=== PATIENT | female | born 1930 | race Caucasian/White ===

== ENCOUNTER 2018-08-20 17:20 | Inpatient (IN) | payer MEDICARE, OTHER ==
[2018-08-20 17:36] LABS: ABSOLUTE BASOPHILS # (AUTO) 0.1 10^3/uL (0.0-0.2); ABSOLUTE EOSINOPHILS # (AUTO) 0.3 10^3/uL (0.0-0.6); ABSOLUTE LYMPHOCYTES (AUTO) 2.5 10^3/uL (0.5-4.7); ABSOLUTE MONOCYTES (AUTO) 0.9 10^3/uL (0.1-1.4); ABSOLUTE NEUT (AUTO) 7.4 10^3/uL (1.7-8.2); BASOPHILS % (AUTO) 0.5 % (0-2); HEMATOCRIT 29.2 % (36.0-47.0); HEMOGLOBIN 9.7 g/dL (12.0-15.5); LYMPHOCYTES % (AUTO) 22.4 % (13-45); MEAN CORPUSCULAR HEMOGLOBIN 27.7 pg (27.0-33.4); MEAN CORPUSCULAR HGB CONC 33.2 g/dL (32.0-36.0); MEAN CORPUSCULAR VOLUME 84 fl (80-97); MONOCYTES % (AUTO) 8.4 % (3-13); PLATELET COUNT 337 10^3/uL (150-450); RED CELL DISTRIBUTION WIDTH 16.9 % (11.5-14.0); SEGMENTED NEUTROPHILS % (AUTO) 65.7 % (42-78); TOTAL CELLS COUNTED % (AUTO) 100 %; WHITE BLOOD COUNT 11.3 10^3/uL (4.0-10.5)
[2018-08-20 17:41] LABS: INTERNATIONAL RATION (INR) 0.94; PROTHROMBIN TIME 13.1 SEC (11.4-15.4)
[2018-08-20] MEDS ORDERED: ALBUTEROL SULFATE 0.083% NEB 2.5 MG/3 ML AMPUL NEB ONE (17:48)
--- NOTE | 2018-08-20 17:51 | ER Document Report ---
ED General - General Stated Complaint: RESPIRATORY DISTRESS Time Seen by Provider: 08/20/18 17:47 Mode of Arrival: Medic Information source: Patient, Relative, [facility] Records Notes: 88-year-old female with hypertension, type 2 diabetes, hyperlipidemia, COPD presents via EMS with complaint of shortness of breath that started 2 days prior to arrival. Patient did give herself a nebulizer treatment prior to EMS arrival but upon EMS arrival she was found to have a 99%. Patient denies any recent illness, history of DVT, PE. She does state that she was sitting outside and believes that the pollen might have flared up her COPD. Patient denies headache, chest pain, abdominal pain, nausea, vomiting, leg swelling. She denies history of PE, DVT. - HPI Onset: Yesterday Onset/Duration: Gradual, Persistent Quality of pain: No pain Severity: None Pain Level: Denies Associated symptoms: Shortness of breath, Weakness. denies: Chest pain, Fever, Headache, Hurts to breath, Leg swelling, Nausea, Vomiting Exacerbated by: Denies Relieved by: Denies Similar symptoms previously: Yes Recently seen / treated by doctor: Yes - Related Data Allergies/Adverse Reactions: codeine [Codeine] Allergy (Verified 07/08/13 08:48) doxycycline [Doxycycline] Allergy (Verified 07/08/13 08:48) Past Medical History - General Information source: Patient, Relative, [facility] Records - Social History Smoking Status: Former Smoker Frequency of alcohol use: None Drug Abuse: None Lives with: Family Family History: Reviewed & Not Pertinent Patient has suicidal ideation: No Patient has homicidal ideation: No - Past Medical History Cardiac Medical History: Reports: Hx Hypercholesterolemia, Hx Hypertension Endocrine Medical History: Reports: Hx Diabetes Mellitus Type 2 Psychiatric Medical History: Denies: Hx Depression Past Surgical History: Reports: Hx Orthopedic Surgery - right toe amputation x 2 - Immunizations Hx Diphtheria, Pertussis, Tetanus Vaccination: Yes Hx Pneumococcal Vaccination: 06/05/07 Review of Systems - Review of Systems Notes: REVIEW OF SYSTEMS: CONSTITUTIONAL : Denies fever, chills, or sweats. Denies recent illness. Denies weight loss, recent hospitalizations. EENT: Denies visual changes, eye pain. Denies sore throat, oral lesions, difficulty swallowing. CARDIOVASCULAR: Denies chest pain. Denies palpitations. Denies lower extremity edema. RESPIRATORY: Denies cough. GASTROINTESTINAL: Denies abdominal pain or distention. Denies nausea, vomiting, or diarrhea. Denies blood in vomitus, stools, or per rectum. Denies black, tarry stools. Denies constipation. GENITOURINARY: Denies difficulty urinating, painful urination, frequency, blood in urine, or vaginal discharge. MUSCULOSKELETAL: Denies back or neck pain or stiffness. Denies joint pain or swelling. SKIN: Denies rash, lesions or sores. HEMATOLOGIC : Denies easy bruising or bleeding. LYMPHATIC: Denies swollen glands. NEUROLOGICAL: Denies confusion or altered mental status. Denies loss of consciousness. Denies dizziness or lightheadedness. Denies headache. Denies weakness or paralysis. Denies problems difficulty with ambulation, slurred speech. Denies sensory loss, numbness, or tingling. Denies seizures. PSYCHIATRIC: Denies anxiety or stress. Denies depression, suicidal ideation, or homicidal ideation. Denies visual or auditory hallucinations. Physical Exam - Vital signs Vitals: Resp Pulse Ox 24 H 99 08/20/18 19:57 08/20/18 19:57 - Notes Notes: PHYSICAL EXAMINATION: GENERAL: Well-appearing, well-nourished and in no acute distress. HEAD: Atraumatic, normocephalic. EYES: Pupils equal round and reactive to light, extraocular movements intact, conjunctiva are normal. ENT: Nares patent, oropharynx clear without exudates. Moist mucous membranes. NECK: Normal range of motion, supple without lymphadenopathy LUNGS: Breath sounds clear to auscultation bilaterally and equal. On nonrebreather, expiratory wheezing, no increased work of breathing, no accessory muscle use. HEART: Regular rate and rhythm without murmurs ABDOMEN: Soft, nontender, nondistended abdomen. No guarding, no rebound. No masses appreciated. Female : deferred Musculoskeletal: Normal range of motion, no pitting or edema. No cyanosis. NEUROLOGICAL: Cranial nerves grossly intact. Normal speech, normal gait. Normal sensory, motor exams PSYCH: Normal mood, normal affect. SKIN: Warm, Dry, normal turgor, no rashes or lesions noted. Course - Re-evaluation Re-evalutation: 08/20/18 21:18 Laboratory 08/20/18 08/20/18 08/20/18 16:50 16:50 16:50 WBC 11.3 H RBC 3.50 L Hgb 9.7 L Hct 29.2 L MCV 84 MCH 27.7 MCHC 33.2 RDW 16.9 H Plt Count 337 Seg Neutrophils % 65.7 Lymphocytes % 22.4 Monocytes % 8.4 Eosinophils % 3.0 Basophils % 0.5 Absolute Neutrophils 7.4 Absolute Lymphocytes 2.5 Absolute Monocytes 0.9 Absolute Eosinophils 0.3 Absolute Basophils 0.1 PT 13.1 INR 0.94 VBG pH VBG pCO2 VBG HCO3 VBG Base Excess Sodium 134.2 L Potassium 4.7 Chloride 97 L Carbon Dioxide 24 Anion Gap 13 BUN 29 H Creatinine 1.18 Est GFR ( Amer) 53 L Est GFR (Non-Af Amer) 43 L Glucose 140 H POC Glucose Calcium 9.7 Total Bilirubin 0.4 Direct Bilirubin 0.3 Neonat Total Bilirubin Not Reportable Neonat Direct Bilirubin Not Reportable Neonat Indirect Bili Not Reportable AST 25 ALT 23 Alkaline Phosphatase 94 Troponin I NT-Pro-B Natriuret Pep Total Protein 7.9 Albumin 4.6 08/20/18 08/20/18 08/20/18 16:50 16:50 17:54 WBC RBC Hgb Hct MCV MCH MCHC RDW Plt Count Seg Neutrophils % Lymphocytes % Monocytes % Eosinophils % Basophils % Absolute Neutrophils Absolute Lymphocytes Absolute Monocytes Absolute Eosinophils Absolute Basophils PT INR VBG pH 7.41 VBG pCO2 37.5 VBG HCO3 23.1 VBG Base Excess -1.3 Sodium Potassium Chloride Carbon Dioxide Anion Gap BUN Creatinine Est GFR ( Amer) Est GFR (Non-Af Amer) Glucose POC Glucose Calcium Total Bilirubin Direct Bilirubin Neonat Total Bilirubin Neonat Direct Bilirubin Neonat Indirect Bili AST ALT Alkaline Phosphatase Troponin I 0.024 NT-Pro-B Natriuret Pep 1400 H Total Protein Albumin 08/20/18 18:54 WBC RBC Hgb Hct MCV MCH MCHC RDW Plt Count Seg Neutrophils % Lymphocytes % Monocytes % Eosinophils % Basophils % Absolute Neutrophils Absolute Lymphocytes Absolute Monocytes Absolute Eosinophils Absolute Basophils PT INR VBG pH VBG pCO2 VBG HCO3 VBG Base Excess Sodium Potassium Chloride Carbon Dioxide Anion Gap BUN Creatinine Est GFR ( Amer) Est GFR (Non-Af Amer) Glucose POC Glucose 184 H Calcium Total Bilirubin Direct Bilirubin Neonat Total Bilirubin Neonat Direct Bilirubin Neonat Indirect Bili AST ALT Alkaline Phosphatase Troponin I NT-Pro-B Natriuret Pep Total Protein Albumin Chest X-Ray 08/20/18 17:25 IMPRESSION: Patchy bibasilar airspace opacities may represent an infectious process such as pneumonia. In the setting of cardiomegaly, early congestive heart failure could have a similar appearance. Clinical correlation recommended. Temp Pulse Resp BP Pulse Ox 24 H 99 08/20/18 19:57 08/20/18 19:57 88-year-old female presented via EMS in respiratory distress. EMS reported that the patient's initial pulse ox upon arrival was 79%. Patient did administer breathing treatments at home without relief. Upon arrival patient is on a nonrebreather after receiving 2 breathing treatments and 125 mg of Solu-Medrol. Patient does have bilateral lower lobe rhonchi with mild expiratory wheezing. She has no accessory muscle use, increased work of breathing, but is requiring 6 L to maintain an O2 saturation over 94%. Patient is not on home oxygen normally. Bedside ultrasound was performed of the lungs and heart. Ultrasound of the lungs did show significant B-lines indicative of interstitial edema. Bedside ultrasound of the heart showed no pericardial effusion, evidence of tamponade. Patient was placed on BiPAP, Nitropaste was placed, Lasix was administered. Patient has been accepted by the hospitalist to the [facility]. Both patient and family agreeable to admission. - Vital Signs Vital signs: Temp Pulse Resp BP Pulse Ox 24 H 99 08/20/18 19:57 08/20/18 19:57 - Laboratory Result Diagrams: 08/20/18 16:50 08/20/18 16:50 Laboratory results interpreted by me: 08/20/18 08/20/18 08/20/18 16:50 16:50 16:50 WBC 11.3 H RBC 3.50 L Hgb 9.7 L Hct 29.2 L RDW 16.9 H Sodium 134.2 L Chloride 97 L BUN 29 H Est GFR ( Amer) 53 L Est GFR (Non-Af Amer) 43 L Glucose 140 H POC Glucose NT-Pro-B Natriuret Pep 1400 H 08/20/18 18:54 WBC RBC Hgb Hct RDW Sodium Chloride BUN Est GFR ( Amer) Est GFR (Non-Af Amer) Glucose POC Glucose 184 H NT-Pro-B Natriuret Pep - Diagnostic Test Radiology reviewed: Image reviewed, Reports reviewed - EKG Interpretation by Dc EKG shows normal: Sinus rhythm Rate: Normal Rhythm: NSR When compared to previous EKG there are: Changes noted Critical Care Note - Critical Care Note Total time excluding time spent on procedures (mins): 40 - Minutes of critical care time spent in direct contact evaluating and reevaluating the patient, treating symptoms, reviewing labs and studies and speaking with family and consultants excluding any procedures Discharge - Discharge Clinical Impression: New onset of congestive heart failure, Hypoxia, Shortness of breath, Diabetes mellitus type 2 in obese Anemia Qualifiers: Anemia type: unspecified type Qualified Code(s): D64.9 - Anemia, unspecified COPD (chronic obstructive pulmonary disease) Qualifiers: COPD type: unspecified COPD Qualified Code(s): J44.9 - Chronic obstructive pulmonary disease, unspecified Condition: Fair Disposition: ADMITTED INPATIENT Admitting Provider: Hospitalist Unit Admitted: [facility]
--- NOTE | 2018-08-20 17:54 | RADIOLOGY REPORT (SQ) ---
EXAM DESCRIPTION: CHEST SINGLE VIEW COMPLETED DATE/TIME: 08/20/2018 5:48 pm REASON FOR STUDY: bed 1 sepsis protocol COMPARISON: 07/08/2013 EXAM PARAMETERS: NUMBER OF VIEWS: One view. TECHNIQUE: Single frontal radiographic view of the chest acquired. RADIATION DOSE: NA LIMITATIONS: None. FINDINGS: LUNGS AND PLEURA: Bibasilar patchy airspace opacities with suggestion of small left-sided pleural effusion. MEDIASTINUM AND HILAR STRUCTURES: No masses. Contour normal. HEART AND VASCULAR STRUCTURES: Borderline cardiomegaly. BONES: No acute findings. HARDWARE: None in the chest. OTHER: No other significant finding. IMPRESSION: Patchy bibasilar airspace opacities may represent an infectious process such as pneumoni a. In the setting of cardiomegaly, early congestive heart failure could have a similar appearance. Clinical correlation recommended. TECHNICAL DOCUMENTATION: JOB ID: [id number] [employer]- All Rights Reserved Reading location - IP/workstation name: [email or web address]
[2018-08-20 18:00] LABS: ALANINE AMINOTRANSFERASE 23 U/L (9-52); ALBUMIN 4.6 g/dL (3.5-5.0); ALKALINE PHOSPHATASE 94 U/L (38-126); ANION GAP 13 (5-19); ASPARTATE AMINO TRANSFERASE 25 U/L (14-36); BILIRUBIN,DIRECT 0.3 mg/dL (0.0-0.4); BILIRUBIN,TOTAL 0.4 mg/dL (0.2-1.3); BLOOD UREA NITROGEN 29 mg/dL (7-20); CALCIUM 9.7 mg/dL (8.4-10.2); CARBON DIOXIDE 24 mmol/L (22-30); CHLORIDE 97 mmol/L (98-107); GLUCOSE 140 mg/dL (75-110); POTASSIUM 4.7 mmol/L (3.6-5.0); SODIUM 134.2 mmol/L (137-145); TOTAL PROTEIN 7.9 g/dL (6.3-8.2)
[2018-08-20 18:07] LABS: VENOUS BLOOD BASE EXCESS -1.3 mmol/L; VENOUS BLOOD HCO3 23.1 mmol/L (20-32); VENOUS BLOOD PCO2 37.5 mmHg (35-63); VENOUS BLOOD PH 7.41 (7.30-7.42)
[2018-08-20] MEDS ORDERED: NITROGLYCERIN 2% OINTMENT 1 GM PACKET TP ONE ×2 (19:57→21:01)
[2018-08-20] MEDS ORDERED: FUROSEMIDE INJ/PF 20 MG/2 ML SDV IV ONE (19:57)
[2018-08-20] MEDS ORDERED: ONDANSETRON HCL INJ/PF 4 MG/2 ML SDV IV PRN (20:52)
[2018-08-20] MEDS ORDERED: MAGNESIUM HYDROXIDE SUSP 30 ML UDCUP PO PRN (20:52)
[2018-08-20] MEDS ORDERED: ONDANSETRON 4 MG TAB.RAPDIS PO PRN (20:52)
[2018-08-20] MEDS ORDERED: MAG HYDROX/AL HYDROX/SIMETH SUSP 30 ML UDCUP PO PRN (20:52)
[2018-08-20] MEDS ORDERED: MORPHINE SULFATE 10 MG/ML INJ IV PRN (20:59)
[2018-08-20] MEDS ORDERED: INSULIN REG, HUMAN 100 UNIT/ML 3 ML VIAL (PYX) SUBCUT PRN (20:59)
[2018-08-20] MEDS ORDERED: HYDRALAZINE HCL INJ/PF 20 MG/1 ML SDV IV PRN (20:59)
[2018-08-20] MEDS ORDERED: ACETAMINOPHEN 325 MG TABLET PO PRN (20:59)
[2018-08-20 22:16] LABS: APPEARANCE,URINE CLEAR; BILIRUBIN,URINE NEGATIVE (NEGATIVE); COLOR,URINE STRAW; GLUCOSE, URINE NEGATIVE (NEGATIVE); KETONES,URINE NEGATIVE (NEGATIVE); LEUKOCYTE ESTERASE,URINE NEGATIVE (NEGATIVE); NITRITE,URINE NEGATIVE (NEGATIVE); PROTEIN,URINE 30 mg/dL (NEGATIVE); URINE SPECIFIC GRAVITY 1.008; UROBILINOGEN,URINE NEGATIVE mg/dL (<2.0)
[2018-08-20] MEDS: FAMOTIDINE 20 MG TABLET PO SCH (22:31)
[2018-08-20] MEDS: HEPARIN SOD (PORCINE) 5,000 UNIT/ML 1 ML SYRINGE SUBCUT SCH (22:33)
--- NOTE | 2018-08-20 22:56 | PDOC H&P ---
History of Present Illness Admission Date/PCP: 08/20/18 20:16 Patient complains of: Dyspnea History of Present Illness: RICHARD QUINONEZ is a 88 year old female who presented to the emergency room via EMS with a 2-day history of progressively worsening dyspnea. She admits that her dyspnea has been present in gradually worsened over the last 2 days without obvious causation. She admits mild orthopnea accompanying her dyspnea. Her dyspnea got to the point today where it was severe and required her to summon EMS to bring her to the emergency room. She did try using a nebulizer treatment prior to coming to the emergency room without improvement. She admits similar prior episodes associated with her COPD, but those are usually accompanied by wheezing. She has noted that exertion significantly increases her dyspnea and it is mildly relieved by rest. In the emergency room she was found to have significant hypoxia despite respiratory support with oxygen and had significant work of breathing requiring her to be placed on BiPAP for adequate oxygenation a nd comfort. With these findings patient was admitted to the hospital for further evaluation and treatment. Past Medical History Cardiac Medical History: Reports: Hyperlipidema, Hypertension Denies: Atrial Fibrillation, Coronary Artery Disease, DVT, Pulmonary Embolism Pulmonary Medical History: Reports: Bronchitis, Chronic Obstructive Pulmonary Disease (COPD), Pneumonia EENT Medical History: Denies: Cataracts, Nose - Nasal polyps Neurological Medical History: Denies: Hemorrhagic CVA, Ischemic CVA, Seizures Endocrine Medical History: Reports: Diabetes Mellitus Type 2 Denies: Diabetes Mellitus Type 1, Hyperthyroidism, Hypothyroidism Renal/ Medical History: Denies: Chronic Kidney Disease, Nephrolithiasis Malignancy Medical History: Reports: None GI Medical History: Denies: Cirrhosis, Hepatitis Musculoskeltal Medical History: Denies: Arthritis, Gout Skin Medical History: Denies: Eczema, Psoriasis Psychiatric Medical History: Denies: Alcohol Dependency, Depression, Substance Abuse, Tobacco Dependency Traumatic Medical History: Reports: None Hematology: Denies: Anemia, Bleeding Tendencies Infectious Medical History: Reports: None Past Surgical History Past Surgical History: Reports: Orthopedic Surgery - right toe amputation x 2 Social History Information Source: Patient Lives with: Family Smoking Status: Former Smoker Frequency of Alcohol Use: None Hx Recreational Drug Use: No Drugs: None Hx Prescription Drug Abuse: No - Advance Directive Resuscitation Status: Full Code Surrogate healthcare decision maker:: Her daughter Rhoda Family History Family History: denies: CAD, DM, Hypertension, Malignancy Parental Family History Reviewed: Yes Children Family History Reviewed: No Sibling(s) Family History Reviewed.: Yes Medication/Allergy Allergies/Adverse Reactions: codeine [Codeine] Allergy (Verified 07/08/13 08:48) doxycycline [Doxycycline] Allergy (Verified 07/08/13 08:48) Review of Systems Constitutional: ABSENT: chills, fever(s) Eyes: ABSENT: visual disturbances, other - Ocular pain Ears: ABSENT: hearing changes, other - Ear pain Nose, Mouth, and Throat: ABSENT: mouth pain, sore throat Cardiovascular: PRESENT: dyspnea on exertion, orthropnea. ABSENT: chest pain, edema, palpitations Respiratory: PRESENT: dyspnea. ABSENT: cough Gastrointestinal: ABSENT: abdominal pain, constipation, diarrhea, nausea, vomiting Genitourinary: ABSENT: dysuria, hematuria Musculoskeletal: ABSENT: back pain, joint swelling Integumentary: ABSENT: pruritus, rash Neurological: ABSENT: confusion, convulsions, focal weakness, memory loss Psychiatric: ABSENT: anxiety, depression Endocrine: ABSENT: cold intolerance, heat intolerance Hematologic/Lymphatic: ABSENT: easy bleeding, easy bruising Physical Exam Vital Signs: Temp Pulse Resp BP Pulse Ox 24 H 99 08/20/18 19:57 08/20/18 19:57 Intake & Output 08/18/18 08/19/18 08/20/18 23:59 23:59 23:59 Weight 83.915 kg General appearance: PRESENT: no acute distress, cooperative Head exam: PRESENT: atraumatic, normocephalic Eye exam: PRESENT: conjunctiva pink. ABSENT: scleral icterus Ear exam: PRESENT: normal external ear exam. ABSENT: bleeding, drainage Mouth exam: PRESENT: dry mucosa, neck supple Neck exam: ABSENT: thyromegaly, tracheal deviation Respiratory exam: PRESENT: prolonged expiratory phas - Minimally prolonged expiratory phase, rales - Bibasilar fine rales, symmetrical, other - On BiPAP Cardiovascular exam: PRESENT: gallop - S4 gallop, RRR. ABSENT: clicks, rubs Pulses: PRESENT: normal radial pulses, normal dorsalis pedis pul Vascular exam: PRESENT: normal capillary refill. ABSENT: pallor GI/Abdominal exam: PRESENT: normal bowel sounds, soft Rectal exam: PRESENT: deferred Extremities exam: PRESENT: pedal edema, +1 edema - Bilateral lower extremities, other - Surgically absent fourth and fifth digits right foot. ABSENT: joint swelling Musculoskeletal exam: ABSENT: deformity, dislocation Neurological exam: PRESENT: alert, oriented to person, oriented to place, oriented to time, oriented to situation, CN II-XII grossly intact. ABSENT: motor sensory deficit Psychiatric exam: PRESENT: appropriate affect, normal mood Skin exam: PRESENT: dry, intact, warm. ABSENT: jaundice, rash, urticaria Results Laboratory Results: 08/20/18 16:50 08/20/18 16:50 08/20/18 08/20/18 08/20/18 16:50 16:50 17:54 WBC 11.3 H RBC 3.50 L Hgb 9.7 L Hct 29.2 L MCV 84 MCH 27.7 MCHC 33.2 RDW 16.9 H Plt Count 337 Seg Neutrophils % 65.7 Lymphocytes % 22.4 Monocytes % 8.4 Eosinophils % 3.0 Basophils % 0.5 Absolute Neutrophils 7.4 Absolute Lymphocytes 2.5 Absolute Monocytes 0.9 Absolute Eosinophils 0.3 Absolute Basophils 0.1 VBG pH 7.41 VBG pCO2 37.5 VBG HCO3 23.1 VBG Base Excess -1.3 Sodium 134.2 L Potassium 4.7 Chloride 97 L Carbon Dioxide 24 Anion Gap 13 BUN 29 H Creatinine 1.18 Est GFR ( Amer) 53 L Est GFR (Non-Af Amer) 43 L Glucose 140 H Calcium 9.7 Total Bilirubin 0.4 AST 25 ALT 23 Alkaline Phosphatase 94 Total Protein 7.9 Albumin 4.6 08/20/18 08/20/18 16:50 16:50 Troponin I 0.024 NT-Pro-B Natriuret Pep 1400 H Impressions: Chest X-Ray 08/20/18 17:25 IMPRESSION: Patchy bibasilar airspace opacities may represent an infectious process such as pneumonia. In the setting of cardiomegaly, early congestive heart failure could have a similar appearance. Clinical correlation recommended. Assessment & Plan - Diagnosis (1) Acute respiratory failure with hypoxia Is this a current diagnosis for this admission?: Yes Plan: Patient was placed on BiPAP in the emergency room and this will be continued until her congestive heart failure has improved point where she can have reduced or no oxygen support. Her O2 sat will be maintained in the 92-94% range per h ospital O2 protocol. (2) Congestive heart failure Qualifiers: Heart failure type: unspecified Heart failure chronicity: acute Qualified Code(s): I50.9 - Heart failure, unspecified Is this a current diagnosis for this admission?: Yes Plan: Patient CHF will be evaluated using an echocardiogram as well as serial cardiac enzymes and EKGs. She will also have laboratory testing done as appropriate to evaluate possible causation/contributing factors of congestive heart failure. She will be supported with supplemental oxygen as required and has received initial dose of intravenous furosemide. Any increase in dyspnea will be treated with morphine sulfate 2 mg IV every 2 hours as needed. Additionally she will have 1 inch of Nitropaste applied changed every 4 hours and will utilize had hydralazine 20 mg IV every 4 hours as needed systolic blood pressure greater than 160 or diastolic blood pressure greater than 100. (3) Hypertension Qualifiers: Hypertension type: essential hypertension Qualified Code(s): I10 - Essential (primary) hypertension Is this a current diagnosis for this admission?: Yes Plan: Patient will be returned to her home medications when they are available. Until such time she will use hydralazine 20 mg IV every 4 hours as needed significant elevated blood pressure. (4) Diabetes mellitus type 2 in obese Is this a current diagnosis for this admission?: Yes Plan: Patient will be maintained in a diabetic diet and will be returned to her regular diabetic medications soon as that list is available. A hemoglobin A1c will be obtained in the morning for evaluation of her current therapy. (5) COPD (chronic obstructive pulmonary disease) Qualifiers: COPD type: unspecified COPD Qualified Code(s): J44.9 - Chronic obstructive pulmonary disease, unspecified Is this a current diagnosis for this admission?: Yes Plan: Patient replaced on a routine nebulizer therapy regiment utilizing Xopenex and Atrovent every 8 hours and budesonide every 12 hours. She can be returned to her home medications once this list is available. - Time Time Spent: 30 to 50 Minutes Critical Time spent with patient: Less than 15 minutes Medications reviewed and adjusted accordingly: Yes Anticipated discharge: Home with Homehealth - Inpatient Certification Based on my medical assessment, after consideration of the patient's comorbidities, presenting symptoms, or acuity I expect that the services needed warrant INPATIENT care.: Yes I certify that my determination is in accordance with my understanding of Medicare's requirements for reasonable and necessary INPATIENT services [42 CFR 412.3e].: Yes Medical Necessity: Significant Comorbidiites Make Outpatient Treatment Too Risky, Need Close Monitoring Due to Risk of Patient Decompensation, Need For Continuous Telemetry Monitoring, Risk of Complication if Not Cared For in Hospital
[2018-08-20 23:36] LABS: CREATINE KINASE MB 1.64 ng/mL (<4.55); TROPONIN I 0.021 ng/mL
--- NOTE | 2018-08-21 00:09 | EKG REPORT ---
SEVERITY:- ABNORMAL ECG - SINUS TACHYCARDIA PROBABLE LVH WITH SECONDARY REPOL ABNRM ST DEPRESSION, CONSIDER ISCHEMIA, ANT-LAT LDS : Confirmed by: Ana Francois 21-Aug-2018 00:08:00
[2018-08-21] MEDS: LEVALBUTEROL HCL NEB 1.25 MG/3 ML AMPUL NEB SCH ×3 (01:22→16:14)
[2018-08-21] MEDS: IPRATROPIUM BROMIDE 0.02% NEB 0.5 MG/2.5 ML AMPUL NEB SCH ×3 (01:22→16:14)
[2018-08-21] MEDS: HEPARIN SOD (PORCINE) 5,000 UNIT/ML 1 ML SYRINGE SUBCUT SCH ×3 (05:10→21:24)
[2018-08-21 05:52] LABS: HEMATOCRIT 29.5 % (36.0-47.0); HEMOGLOBIN 9.7 g/dL (12.0-15.5); MEAN CORPUSCULAR HGB CONC 32.9 g/dL (32.0-36.0); MEAN CORPUSCULAR VOLUME 82 fl (80-97); PLATELET COUNT 296 10^3/uL (150-450); RED BLOOD COUNT 3.59 10^6/uL (3.72-5.28); RED CELL DISTRIBUTION WIDTH 16.7 % (11.5-14.0); WHITE BLOOD COUNT 6.2 10^3/uL (4.0-10.5)
[2018-08-21 06:24] LABS: ANION GAP 13 (5-19); BLOOD UREA NITROGEN 31 mg/dL (7-20); CALCIUM 10.2 mg/dL (8.4-10.2); CARBON DIOXIDE 24 mmol/L (22-30); CHLORIDE 100 mmol/L (98-107); CHOLESTEROL 152.28 mg/dL (0-200); GLUCOSE 173 mg/dL (75-110); TRIGLYCERIDES 97 mg/dL (<150)
[2018-08-21 06:35] LABS: DIRECT LDL 58 mg/dL (<100)
[2018-08-21 06:52] LABS: CREATINE KINASE MB 1.99 ng/mL (<4.55); TROPONIN I 0.028 ng/mL
[2018-08-21 07:08] LABS: FREE T3 2.54 pg/mL (2.77-5.27); FREE T4 (FREE THYROXINE) 0.63 ng/dL (0.78-2.19)
[2018-08-21 07:21] LABS: THYROID STIMULATING HORMONE 0.89 uIU/mL (0.47-4.68)
[2018-08-21] MEDS: BUDESONIDE NEB 0.5 MG/2 ML AMPUL NEB SCH ×2 (08:01→20:07)
[2018-08-21 12:07] LABS: CREATINE KINASE MB 3.67 ng/mL (<4.55); TROPONIN I 0.02 ng/mL
[2018-08-21] MEDS: METOPROLOL SUCCINATE 25 MG TAB.SR.24H PO SCH (12:14)
[2018-08-21] MEDS: SPIRONOLACTONE 25 MG TABLET PO SCH (12:14)
[2018-08-21] MEDS: DOCUSATE SODIUM 100 MG CAPSULE PO SCH ×2 (12:14→17:44)
[2018-08-21] MEDS: FAMOTIDINE 20 MG TABLET PO SCH ×2 (12:15→21:25)
[2018-08-21] MEDS ORDERED: TRAMADOL HCL 50 MG TABLET PO PRN (12:45)
--- NOTE | 2018-08-21 13:14 | PDOC PROGRESS REPORT ---
Subjective Progress Note for:: 08/21/18 Subjective:: 88 year old female who presented to the emergency room via EMS with a 2-day history of progressively worsening dyspnea. She admits that her dyspnea has been present in gradually worsened over the last 2 days without obvious causation. She admits mild orthopnea accompanying her dyspnea. Her dyspnea got to the point today where it was severe and required her to summon EMS to bring her to the emergency room. She did try using a nebulizer treatment prior to coming to the emergency room without improvement. She admits similar prior episodes associated with her COPD, but those are usually accompanied by wheezing. She has noted that exertion significantly increases her dyspnea and it is mildly relieved by rest. In the emergency room she was found to have si gnificant hypoxia despite respiratory support with oxygen and had significant work of breathing requiring her to be placed on BiPAP for adequate oxygenation and comfort. With these findings patient was admitted to the hospital for further evaluation and treatment. 08/21/2018-no acute events in the last 24 hours. Patient is afebrile. Patient says she is feeling much better. Pulse ox is 95% on 2 L. Reason For Visit: ACCUTE CONGESTIVE HEART FAILURE WITH ACUTE Physical Exam Vital Signs: Temp Pulse Resp BP Pulse Ox 97.9 F 100 20 122/80 95 08/21/18 11:56 08/21/18 11:56 08/21/18 11:56 08/21/18 11:56 08/21/18 11:56 Intake & Output 08/20/18 08/21/18 08/22/18 06:59 06:59 06:59 Intake Total 250 Output Total 3200 Balance -2950 Weight 85.9 kg General appearance: PRESENT: no acute distress, obese Head exam: PRESENT: atraumatic Eye exam: PRESENT: PERRLA Mouth exam: PRESENT: moist, tongue midline Neck exam: ABSENT: carotid bruit, JVD, lymphadenopathy, thyromegaly Respiratory exam: PRESENT: decreased breath sounds Cardiovascular exam: PRESENT: tachycardia GI/Abdominal exam: PRESENT: normal bowel sounds, soft. ABSENT: distended, guarding, mass, organolmegaly, rebound, tenderness Extremities exam: PRESENT: +1 edema Neurological exam: PRESENT: alert, awake, oriented to person, oriented to place, oriented to time, oriented to situation, CN II-XII grossly intact. ABSENT: motor sensory deficit Psychiatric exam: PRESENT: appropriate affect, normal mood. ABSENT: homicidal i deation, suicidal ideation Results Laboratory Results: 08/21/18 05:09 08/21/18 05:09 08/20/18 08/20/18 08/20/18 16:50 16:50 17:54 WBC 11.3 H RBC 3.50 L Hgb 9.7 L Hct 29.2 L MCV 84 MCH 27.7 MCHC 33.2 RDW 16.9 H Plt Count 337 Seg Neutrophils % 65.7 Lymphocytes % 22.4 Monocytes % 8.4 Eosinophils % 3.0 Basophils % 0.5 Absolute Neutrophils 7.4 Absolute Lymphocytes 2.5 Absolute Monocytes 0.9 Absolute Eosinophils 0.3 Absolute Basophils 0.1 VBG pH 7.41 VBG pCO2 37.5 VBG HCO3 23.1 VBG Base Excess -1.3 Sodium 134.2 L Potassium 4.7 Chloride 97 L Carbon Dioxide 24 Anion Gap 13 BUN 29 H Creatinine 1.18 Est GFR ( Amer) 53 L Est GFR (Non-Af Amer) 43 L Glucose 140 H Calcium 9.7 Magnesium Total Bilirubin 0.4 AST 25 ALT 23 Alkaline Phosphatase 94 Total Protein 7.9 Albumin 4.6 Triglycerides Cholesterol LDL Cholesterol Direct VLDL Cholesterol HDL Cholesterol TSH Free T4 Free T3 pg/mL Urine Color Urine Appearance Urine pH Ur Specific [place] Urine Protein Urine Glucose (UA) Urine Ketones Urine Blood Urine Nitrite Ur Leukocyte Esterase Urine WBC (Auto) 08/20/18 08/21/18 08/21/18 21:55 05:09 05:09 WBC 6.2 RBC 3.59 L Hgb 9.7 L Hct 29.5 L MCV 82 MCH 27.0 MCHC 32.9 RDW 16.7 H Plt Count 296 Seg Neutrophils % Lymphocytes % Monocytes % Eosinophils % Basophils % Absolute Neutrophils Absolute Lymphocytes Absolute Monocytes Absolute Eosinophils Absolute Basophils VBG pH VBG pCO2 VBG HCO3 VBG Base Excess Sodium 137.0 Potassium 5.0 Chloride 100 Carbon Dioxide 24 Anion Gap 13 BUN 31 H Creatinine 1.08 Est GFR ( Amer) 58 L Est GFR (Non-Af Amer) 48 L Glucose 173 H Calcium 10.2 Magnesium 2.2 Total Bilirubin AST ALT Alkaline Phosphatase Total Protein Albumin Triglycerides 97 Cholesterol 152.28 LDL Cholesterol Direct 58 VLDL Cholesterol 19.0 HDL Cholesterol 81 TSH Free T4 Free T3 pg/mL Urine Color STRAW Urine Appearance CLEAR Urine pH 5.0 Ur Specific [place] 1.008 Urine Protein 30 H Urine Glucose (UA) NEGATIVE Urine Ketones NEGATIVE Urine Blood SMALL H Urine Nitrite NEGATIVE Ur Leukocyte Esterase NEGATIVE Urine WBC (Auto) 0 08/21/18 05:09 WBC RBC Hgb Hct MCV MCH MCHC RDW Plt Count Seg Neutrophils % Lymphocytes % Monocytes % Eosinophils % Basophils % Absolute Neutrophils Absolute Lymphocytes Absolute Monocytes Absolute Eosinophils Absolute Basophils VBG pH VBG pCO2 VBG HCO3 VBG Base Excess Sodium Potassium Chloride Carbon Dioxide Anion Gap BUN Creatinine Est GFR ( Amer) Est GFR (Non-Af Amer) Glucose Calcium Magnesium Total Bilirubin AST ALT Alkaline Phosphatase Total Protein Albumin Triglycerides Cholesterol LDL Cholesterol Direct VLDL Cholesterol HDL Cholesterol TSH 0.89 Free T4 0.63 L Free T3 pg/mL 2.54 L Urine Color Urine Appearance Urine pH Ur Specific [place] Urine Protein Urine Glucose (UA) Urine Ketones Urine Blood Urine Nitrite Ur Leukocyte Esterase Urine WBC (Auto) 08/20/18 08/20/18 08/20/18 16:50 16:50 22:53 Creatine Kinase 158 H CK-MB (CK-2) Troponin I 0.024 NT-Pro-B Natriuret Pep 1400 H 08/20/18 08/21/18 08/21/18 22:53 05:09 05:09 Creatine Kinase 148 H CK-MB (CK-2) 1.64 1.99 Troponin I 0.021 0.028 NT-Pro-B Natriuret Pep 08/21/18 08/21/18 08/21/18 05:09 10:55 10:55 Creatine Kinase 257 H CK-MB (CK-2) 3.67 Troponin I 0.020 NT-Pro-B Natriuret Pep 2390 H Impressions: Chest X-Ray 08/20/18 17:25 IMPRESSION: Patchy bibasilar airspace opacities may represent an infectious process such as pneumonia. In the setting of cardiomegaly, early congestive heart failure could have a similar appearance. Clinical correlation recommended. Assessment and Plan - Diagnosis (1) Acute respiratory failure with hypoxia Is this a current diagnosis for this admission?: Yes Plan: Patient was placed on BiPAP in the emergency room and this will be continued until her congestive heart failure has improved point where she can have reduced or no oxygen support. Her O2 sat will be maintained in the 92-94% range per hospital O2 protocol. 08/21/2018-patient came in with acute on chronic respiratory failure with hypoxia most likely secondary to underlying COPD exacerbation/CHF exacerbation. Initially in the ER she required BiPAP. Presently pulse ox is 95% on 2 L. She is on Xopenex nebulizations and also on Pulmicort. Plan is to continue the present management. Chest x-ray done on admission suggestive of either bilateral pneumonia/congestive heart failure. And is to repeat the chest x-ray tomorrow. (2) Congestive heart failure Qualifiers: Heart failure type: unspecified Heart failure chronicity: acute Qualified Code(s): I50.9 - Heart failure, unspecified Is this a current diagnosis for this admission?: Yes Plan: 08/21/18 13:09 Patient denies any history of congestive heart failure. But she admitted that she has chronic bilateral lower leg swelling. Recently she developed shortness of breath also. This 1 of the reasons she came to the emergency room. Is presently on spironolactone and Toprol. BNP is 2590 she was started on Lasix 40 mg IV daily, lisinopril 10 mg IV daily today. Most likely patient has chronic systolic heart failure because of the history of hypertension. Waiting for the echocardiogram report. plan is to repeat the BNP tomorrow. (3) COPD (chronic obstructive pulmonary disease) Qualifiers: COPD type: unspecified COPD Qualified Code(s): J44.9 - Chronic obstructive pulmonary disease, unspecified Is this a current diagnosis for this admission?: No Plan: Patient replaced on a routine nebulizer therapy regiment utilizing Xopenex and Atrovent every 8 hours and budesonide every 12 hours. She can be returned to her home medications once this list is available. Patient initially came in with respiratory distress requiring BiPAP in the emergency room. Pulse ox are improved to 95% on 2 L this morning. Patient is presently on Xopenex nebulizations and her Pulmicort. Plan is to continue the present management. (4) Diabetes mellitus type 2 in obese Is this a current diagnosis for this admission?: No Plan: 08/21/18 13:11 08/21/2018 patient has history of type 2 diabetes mellitus hemoglobin A1c 6.3. Latest blood sugar is 141. Patient is presently on insulin sliding scale plan is to continue the present management. Patient is on glipizide/metformin at home which was on hold. 08/21/18 13:14 (5) Hypertension Qualifiers: Hypertension type: essential hypertension Qualified Code(s): I10 - Essential (primary) hypertension Is this a current diagnosis for this admission?: No Plan: 08/21/18 13:12 Patient's latest blood pressure is 154/54. She has history of chronic hypertension. At home she is on metoprolol 50 mg daily and nifedipine 90 mg daily. Plan is to hold nifedipine because of the chronic pedal edema. Start on Lasix 40 mg IV daily lisinopril 10 mg daily. Plan to check the blood pressures every shift. - Time Time Spent with patient: 25-34 minutes Medications reviewed and adjusted accordingly: Yes Anticipated discharge: Home
[2018-08-21] MEDS: GABAPENTIN 300 MG CAPSULE PO SCH ×2 (15:23→21:25)
--- NOTE | 2018-08-21 15:31 | RADIOLOGY REPORT (SQ) ---
EXAM DESCRIPTION: CT CHEST WITHOUT COMPLETED DATE/TIME: 08/21/2018 2:16 pm REASON FOR STUDY: pneumonia COMPARISON: 08/20/18 TECHNIQUE: CT scan performed of the chest without intravenous contrast. Images reviewed with lung, soft tissue and bone windows. Reconstructed coronal and sagittal MPR images reviewed. All images st ored on PACS. All CT scanners at this facility use dose modulation, iterative reconstruction, and/or weight based d osing when appropriate to reduce radiation dose to as low as reasonably achievable (ALARA). [facility]: Dose Right [facility]: CareDose [facility]: Dose Right [facility]: Teradose 4D [facility]: [employer] RADIATION DOSE: CT Rad equipment meets quality standard of care and radiation dose reduction techniq ues were employed. CTDIvol: 9.7 mGy. DLP: 373 mGy-cm. mGy. LIMITATIONS: No technical limitations. FINDINGS: LUNGS AND PLEURA: Small bilateral pleural effusions, right greater than left with mild adrian ateral lower lobe consolidation, likely atelectasis. Additional mild interlobular septal thickening and patchy areas of minimal ground-glass attenuation. No pneumothorax. No discrete suspicious nodul es or masses. HILAR AND MEDIASTINAL STRUCTURES: Shotty mediastinal lymph nodes. Largest precarinal node measures 1 cm in short axis. Likely left hilar node measuring 1.1 cm in short axis. No discrete axillary adry opathy. HEART AND VASCULAR STRUCTURES: Enlarged heart. Scattered three-vessel coronary atherosclerosis. No significant pericardial effusion. UPPER ABDOMEN: No evidence of acute process. THYROID AND OTHER SOFT TISSUES: No masses. No adenopathy. BONES: No acute bony abnormality. Chronic appearing posterior right-sided rib fractures. HARDWARE: None in the chest. OTHER: No other significant findings. IMPRESSION: Findings suggestive of CHF with enlarged heart, small bilateral effusions and mild inter lobular septal thickening. No overt alveolar edema. Mild bilateral lower lobe consolidation, likely atelectasis. Mildly enlarged nonspecific mediastinal and hilar lymph nodes as above. TECHNICAL DOCUMENTATION: JOB ID: [id number] Quality ID # [id number]: Final reports with documentation of one or more dose reduction techniques (e.g., Au tomated exposure control, adjustment of the mA and/or kV according to patient size, use of iterative reconstruction technique) 2010 [employer]- All Rights Reserved Reading location - IP/workstation name: [email or web address] [email or web address]
--- NOTE | 2018-08-21 20:30 | XCELERA REPORT ---
[address] [address] Transthoracic Echocardiogram Report Name: RICHARD QUINONEZ Age: 88 yrs Gender: Female : 1930 Patient Status: Inpatient Patient Location: [address] [place] [address] Study Date: 08/21/2018 09:56 AM Height: 65 in Weight: 185 lb BSA: 1.9 m2 Procedure: A two-dimensional transthoracic echocardiogram with color flow Doppler was performed. Study Quality: Fair. Reason For Study: new chf History: CHF. Ordering Physician: PETTY KAPLAN Performed By: Irma Bustamante Interpretation Summary The left ventricle is normal in size. There is normal left ventricular wall thickness. LV EF is > than 65% The left ventricular ejection fraction is within normal limits. Doppler measurements suggest normal left ventricular diastolic function The left ventricular wall motion is normal. There is no thrombus. There is no ventricular septal defect visualized. The right ventricle is normal in size and function. The right atrium is normal. The left atrium is moderately dilated. The interatrial septum is intact with no evidence for an atrial septal defect. There is no Doppler evidence for an interatrial shunt There is no aortic valvular vegetation. There is no evidence of mitral valve prolapse. There is mild mitral annular calcification. There is no vegetation seen on the mitral valve. There is no mitral valve stenosis. There is a mild amount of mitral regurgitation There is no aortic valve stenosis There is no LVOT obstruction. No aortic regurgitation is present. There is no tricuspid stenosis. No tricuspid regurgitation. Unable to calculate RVSP due lack of TR jet. There is no pulmonic valvular regurgitation. The aortic root is normal size. The inferior vena cava appeared small and collapsed with respiration (RAP 0-5 mmHg) There is no pericardial effusion. MMode/2D Measurements & Calculations RVDd: 3.1 cm LVIDd: 5.0 cm FS: 41.2 % Ao root diam: 2.7 cm IVSd: 1.2 cm LVIDs: 2.9 cm EDV(Teich): LVPWd: 1.1 cm 117.1 ml Ao root area: ESV(Teich): 33.0 ml5.9 cm2 EF(Teich): 71.8 % EDV(MOD-sp4): SV(MOD-sp4): 89.1 ml 65.3 ml ESV(MOD-sp4): 23.8 ml EF(MOD-sp4): 73.3 % Doppler Measurements & Calculations MV E max gus: MV dec slope: Ao V2 max: LV V1 max P.3 cm/sec 180.8 cm/sec 4.4 mmHg MV A max gus: 998.0 cm/sec2 Ao max PG: LV V1 max: 81.9 cm/sec MV dec time: 0.13 sec13.1 mmHg 104.9 cm/sec MV E/A: 1.6 LV dP/dt: 1697 mmHg/s PA V2 max: 114.1 cm/sec PA max P.2 mmHg Left Ventricle The left ventricle is normal in size. There is normal left ventricular wall thickness. LV EF is > than 65%. The left ventricular ejection fraction is within normal limits. Doppler measurements suggest normal left ventricular diastolic function. The left ventricular wall motion is normal. There is no thrombus. There is no ventricular septal defect visualized. Right Ventricle The right ventricle is normal in size and function. Atria The right atrium is normal. The left atrium is moderately dilated. The interatrial septum is intact with no evidence for an atrial septal defect. There is no Doppler evidence for an interatrial shunt. Mitral Valve There is mild mitral annular calcification. There is no evidence of mitral valve prolapse. There is no vegetation seen on the mitral valve. There is no mitral valve stenosis. There is a mild amount of mitral regurgitation. Aortic Valve There is no aortic valvular vegetation. There is no aortic valve stenosis. There is no LVOT obstruction. No aortic regurgitation is present. Tricuspid Valve There is no tricuspid stenosis. No tricuspid regurgitation. Unable to calculate RVSP due lack of TR jet. Pulmonic Valve There is no pulmonic valvular stenosis. There is no pulmonic valvular regurgitation. Great Vessels The aortic root is normal size. The inferior vena cava appeared small and collapsed with respiration (RAP 0-5 mmHg). Effusions There is no pericardial effusion. : PETTY KAPLAN > Nori Razo
[2018-08-21] MEDS: ATORVASTATIN CALCIUM 40 MG TABLET PO SCH (21:25)
[2018-08-22] MEDS: LEVALBUTEROL HCL NEB 1.25 MG/3 ML AMPUL NEB SCH ×3 (00:39→15:36)
[2018-08-22] MEDS: IPRATROPIUM BROMIDE 0.02% NEB 0.5 MG/2.5 ML AMPUL NEB SCH ×3 (00:39→15:36)
[2018-08-22] MEDS: HYDRALAZINE HCL INJ/PF 20 MG/1 ML SDV IV PRN ×2 (01:10→05:57)
[2018-08-22] MEDS: HEPARIN SOD (PORCINE) 5,000 UNIT/ML 1 ML SYRINGE SUBCUT SCH ×3 (05:10→21:58)
[2018-08-22] MEDS: GABAPENTIN 300 MG CAPSULE PO SCH ×3 (05:10→21:58)
[2018-08-22 06:36] LABS: HEMATOCRIT 31.3 % (36.0-47.0); HEMOGLOBIN 10.3 g/dL (12.0-15.5); MEAN CORPUSCULAR HEMOGLOBIN 27.2 pg (27.0-33.4); MEAN CORPUSCULAR HGB CONC 32.8 g/dL (32.0-36.0); MEAN CORPUSCULAR VOLUME 83 fl (80-97); PLATELET COUNT 358 10^3/uL (150-450); RED BLOOD COUNT 3.77 10^6/uL (3.72-5.28); WHITE BLOOD COUNT 7.6 10^3/uL (4.0-10.5)
[2018-08-22 07:04] LABS: ALANINE AMINOTRANSFERASE 20 U/L (9-52); ALBUMIN 4.2 g/dL (3.5-5.0); ALKALINE PHOSPHATASE 90 U/L (38-126); ANION GAP 9 (5-19); ASPARTATE AMINO TRANSFERASE 35 U/L (14-36); BILIRUBIN,DIRECT 0.1 mg/dL (0.0-0.4); BILIRUBIN,TOTAL 0.4 mg/dL (0.2-1.3); BLOOD UREA NITROGEN 29 mg/dL (7-20); CALCIUM 9.9 mg/dL (8.4-10.2); CARBON DIOXIDE 29 mmol/L (22-30); CHLORIDE 104 mmol/L (98-107); GLUCOSE 124 mg/dL (75-110); POTASSIUM 4.1 mmol/L (3.6-5.0); SODIUM 141.6 mmol/L (137-145); TOTAL PROTEIN 7.8 g/dL (6.3-8.2)
[2018-08-22] MEDS: BUDESONIDE NEB 0.5 MG/2 ML AMPUL NEB SCH ×2 (08:20→19:20)
[2018-08-22] MEDS: METOPROLOL SUCCINATE 25 MG TAB.SR.24H PO SCH (09:52)
[2018-08-22] MEDS: NIFEDIPINE 30 MG TAB.ER.24 PO SCH (09:52)
[2018-08-22] MEDS: SPIRONOLACTONE 25 MG TABLET PO SCH (09:52)
[2018-08-22] MEDS: DOCUSATE SODIUM 100 MG CAPSULE PO SCH ×2 (09:52→17:34)
[2018-08-22] MEDS: DULOXETINE HCL 30 MG CAPSULE.DR PO SCH (09:52)
[2018-08-22] MEDS: LISINOPRIL 10 MG TABLET PO SCH (09:53)
[2018-08-22] MEDS: FAMOTIDINE 20 MG TABLET PO SCH ×2 (09:53→21:58)
[2018-08-22] MEDS: FUROSEMIDE INJ/PF 40 MG/4 ML SDV IV SCH (09:53)
[2018-08-22] MEDS ORDERED: (PENDING PHARMACY ID) (Nifedipine [Nifedipine Er] 90 MG) PO SCH (10:00)
[2018-08-22] MEDS ORDERED: METOPROLOL SUCCINATE 50 MG TAB.SR.24H PO SCH (10:00)
[2018-08-22] MEDS ORDERED: DILTIAZEM HCL INJ 25 MG/5 ML VIAL IV PRN (10:28)
--- NOTE | 2018-08-22 10:45 | PDOC PROGRESS REPORT ---
Subjective Progress Note for:: 08/22/18 Subjective:: 88 year old female who presented to the emergency room via EMS with a 2-day history of progressively worsening dyspnea. She admits that her dyspnea has been present in gradually worsened over the last 2 days without obvious causation. She admits mild orthopnea accompanying her dyspnea. Her dyspnea got to the point today where it was severe and required her to summon EMS to bring her to the emergency room. She did try using a nebulizer treatment prior to coming to the emergency room without improvement. She admits similar prior episodes associated with her COPD, but those are usually accompanied by wheezing. She has noted that exertion significantly increases her dyspnea and it is mildly relieved by rest. In the emergency room she was found to have si gnificant hypoxia despite respiratory support with oxygen and had significant work of breathing requiring her to be placed on BiPAP for adequate oxygenation and comfort. With these findings patient was admitted to the hospital for further evaluation and treatment. 08/21/2018-no acute events in the last 24 hours. Patient is afebrile. Patient says she is feeling much better. Pulse ox is 95% on 2 L. 08/22/2018-no acute events in the last 24 hours. Patient is afebrile. Patient has sought episode of atrial fibrillation she converted right back into sinus rhythm. Patient is still tachycardic heart rate close to 100. Portably sleeping in bed woke up and denies any complaints. Reason For Visit: ACCUTE CONGESTIVE HEART FAILURE WITH ACUTE Physical Exam Vital Signs: Temp Pulse Resp BP Pulse Ox 98.2 F 94 18 125/46 L 99 08/22/18 08:00 08/22/18 08:20 08/22/18 08:20 08/22/18 08:00 08/22/18 08:20 Intake & Output 08/21/18 08/22/18 08/23/18 06:59 06:59 06:59 Intake Total 250 1038 Output Total 3200 3210 Balance -2950 -2172 Weight 85.9 kg 85.7 kg General appearance: PRESENT: no acute distress, obese Head exam: PRESENT: atraumatic Eye exam: PRESENT: PERRLA Neck exam: ABSENT: carotid bruit, JVD, lymphadenopathy, thyromegaly Respiratory exam: PRESENT: crackles, decreased breath sounds Cardiovascular exam: PRESENT: tachycardia GI/Abdominal exam: PRESENT: normal bowel sounds, soft. ABSENT: distended, guarding, mass, organolmegaly, rebound, tenderness Extremities exam: PRESENT: +1 edema Neurological exam: PRESENT: alert, awake, oriented to person, oriented to place, oriented to time, oriented to situation, CN II-XII grossly intact. ABSENT: motor sensory deficit Psychiatric exam: PRESENT: appropriate affect, normal mood. ABSENT: homicidal ideation, suicidal ideation Results Laboratory Results: 08/22/18 05:38 08/22/18 05:38 08/22/18 08/22/18 05:38 05:38 WBC 7.6 RBC 3.77 Hgb 10.3 L Hct 31.3 L MCV 83 MCH 27.2 MCHC 32.8 RDW 17.0 H Plt Count 358 Sodium 141.6 Potassium 4.1 Chloride 104 Carbon Dioxide 29 Anion Gap 9 BUN 29 H Creatinine 1.08 Est GFR ( Amer) 58 L Est GFR (Non-Af Amer) 48 L Glucose 124 H Calcium 9.9 Magnesium 2.1 Total Bilirubin 0.4 AST 35 ALT 20 Alkaline Phosphatase 90 Total Protein 7.8 Albumin 4.2 08/20/18 21:55 Catheterized Urine Urine Culture - Final NO GROWTH 2 DAYS 08/20/18 08/20/18 08/20/18 16:50 16:50 22:53 Creatine Kinase 158 H CK-MB (CK-2) Troponin I 0.024 NT-Pro-B Natriuret Pep 1400 H 08/20/18 08/21/18 08/21/18 22:53 05:09 05:09 Creatine Kinase 148 H CK-MB (CK-2) 1.64 1.99 Troponin I 0.021 0.028 NT-Pro-B Natriuret Pep 08/21/18 08/21/18 08/21/18 05:09 10:55 10:55 Creatine Kinase 257 H CK-MB (CK-2) 3.67 Troponin I 0.020 NT-Pro-B Natriuret Pep 2390 H 08/22/18 05:38 Creatine Kinase CK-MB (CK-2) Troponin I NT-Pro-B Natriuret Pep 1550 H Impressions: Chest X-Ray 08/20/18 17:25 IMPRESSION: Patchy bibasilar airspace opacities may represent an infectious process such as pneumonia. In the setting of cardiomegaly, early congestive heart failure could have a similar appearance. Clinical correlation rec ommended. Chest CT 08/21/18 00:00 IMPRESSION: Findings suggestive of CHF with enlarged heart, small bilateral effusions and mild interlobular septal thickening. No overt alveolar edema. Mild bilateral lower lobe consolidation, likely atelectasis. Mildly enlarged nonspecific mediastinal and hilar lymph nodes as above. Assessment and Plan - Diagnosis (1) Acute respiratory failure with hypoxia Is this a current diagnosis for this admission?: Yes Plan: Patient was placed on BiPAP in the emergency room and this will be continued until her congestive heart failure has improved point where she can have reduced or no oxygen support. Her O2 sat will be maintained in the 92-94% range per hospital O2 protocol. 08/21/2018-patient came in with acute on chronic respiratory failure with hypoxia most likely secondary to underlying COPD exacerbation/CHF exacerbation. Initially in the ER she required BiPAP. Presently pulse ox is 95% on 2 L. She is on Xopenex nebulizations and also on Pulmicort. Plan is to continue the present management. Chest x-ray done on admission suggestive of either bilateral pneumonia/congestive heart failure. And is to repeat the chest x-ray tomorrow. 08/22/2018-patient is to be admitted with acute on chronic respiratory failure with hypoxia most likely secondary to underlying COPD exacerbation/CHF exacerbation. Initially required BiPAP. Right now pulse ox is 99% on 3 L. Patient is on a Xopenex nebulizations and also Pulmicort. CT scan of the chest is suggestive of bilateral pulmonary congestion indicating congestive heart failure. Patient is afebrile and no WBC count. (2) Congestive heart failure Qualifiers: Heart failure type: unspecified Heart failure chronicity: acute Qualified Code(s): I50.9 - Heart failure, unspecified Is this a current diagnosis for this admission?: Yes Plan: 08/21/18 13:09 Patient denies any history of congestive heart failure. But she admitted that she has chronic bilateral lower leg swelling. Recently she developed shortness of breath also. This 1 of the reasons she came to the emergency room. Is presently on spironolactone and Toprol. BNP is 2590 she was started on Lasix 40 mg IV daily, lisinopril 10 mg IV daily today. Most likely patient has chronic systolic heart failure because of the history of hypertension. Waiting for the echocardiogram report. plan is to repeat the BNP tomorrow. 08/22/2018-patient BNP came down to 1550 today she is presently on Lasix 40 mg IV daily echocardiogram was done yesterday left ventricular ejection fraction of 65%. Left ventricular diastolic function is on also normal as per the echo. She has a history of chronic hypertension may be it is a contributing factor for chronic systolic hypertension in my opinion. And is to continue the present management. (3) COPD (chronic obstructive pulmonary disease) Qualifiers: COPD type: unspecified COPD Qualified Code(s): J44.9 - Chronic obstructive pulmonary disease, unspecified Is this a current diagnosis for this admission?: No Plan: Patient replaced on a routine nebulizer therapy regiment utilizing Xopenex and Atrovent every 8 hours and budesonide every 12 hours. She can be returned to her home medications once this list is available. Patient initially came in with respiratory distress requiring BiPAP in the emergency room. Pulse ox are improved to 95% on 2 L this morning. Patient is presently on Xopenex nebulizations and her Pulmicort. Plan is to continue the present management. (4) Diabetes mellitus type 2 in obese Is this a current diagnosis for this admission?: No Plan: 08/21/18 13:11 08/21/2018 patient has history of type 2 diabetes mellitus hemoglobin A1c 6.3. Latest blood sugar is 141. Patient is presently on insulin sliding scale plan is to continue the present management. Patient is on glipizide/metformin at home which was on hold. 08/22/2018-patient has history of type 2 diabetes mellitus, hemoglobin A1c 6.3 on admission latest blood sugar is 34. Plan is to continue insulin sliding scale before meals and at bedtime. (5) Hypertension Qualifiers: Hypertension type: essential hypertension Qualified Code(s): I10 - Essential (primary) hypertension Is this a current diagnosis for this admission?: No Plan: 08/21/18 13:12 Patient's latest blood pressure is 154/54. She has history of chronic hypertension. At home she is on metoprolol 50 mg daily and nifedipine 90 mg daily. Plan is to hold nifedipine because of the chronic pedal edema. Start on Lasix 40 mg IV daily lisinopril 10 mg daily. Plan to check the blood pressures every shift. 08/22/2018-patient's latest blood pressure is 125/46 with a heart rate of 94 she had a short and a brief episode of atrial fibrillation. Order for Cardizem IV 5 mg every 6 hours as needed for heart rate of more than 120 was placed. Plan is to continue the present management. (6) Paroxysmal A-fib Is this a current diagnosis for this admission?: Yes Plan: 08/22/2018-patient found to have a shot episode of paroxysmal atrial fibrillation patient is asymptomatic she immediately converted to sinus rhythm. It may be secondary to underlying COPD/CHF exacerbation. - Time Time Spent with patient: 15-24 minutes Medications reviewed and adjusted accordingly: Yes Anticipated discharge: Home
[2018-08-22] MEDS: ATORVASTATIN CALCIUM 40 MG TABLET PO SCH (21:58)
--- NOTE | 2018-08-22 23:20 | EKG REPORT ---
SEVERITY:- ABNORMAL ECG - SINUS TACHYCARDIA PROBABLE LVH WITH SECONDARY REPOL ABNRM : Confirmed by: Ana Francois 22-Aug-2018 23:19:41
[2018-08-23] MEDS: LEVALBUTEROL HCL NEB 1.25 MG/3 ML AMPUL NEB SCH ×3 (00:11→16:23)
[2018-08-23] MEDS: IPRATROPIUM BROMIDE 0.02% NEB 0.5 MG/2.5 ML AMPUL NEB SCH ×3 (00:11→16:23)
[2018-08-23] MEDS: GABAPENTIN 300 MG CAPSULE PO SCH ×2 (05:15→15:17)
[2018-08-23] MEDS: HEPARIN SOD (PORCINE) 5,000 UNIT/ML 1 ML SYRINGE SUBCUT SCH ×2 (05:15→15:17)
[2018-08-23 05:24] LABS: ABSOLUTE BASOPHILS # (AUTO) 0.1 10^3/uL (0.0-0.2); ABSOLUTE EOSINOPHILS # (AUTO) 0.3 10^3/uL (0.0-0.6); ABSOLUTE LYMPHOCYTES (AUTO) 1.9 10^3/uL (0.5-4.7); ABSOLUTE NEUT (AUTO) 3.7 10^3/uL (1.7-8.2); BASOPHILS % (AUTO) 0.8 % (0-2); EOSINOPHILS % (AUTO) 3.8 % (0-6); HEMOGLOBIN 9.5 g/dL (12.0-15.5); LYMPHOCYTES % (AUTO) 27.4 % (13-45); MEAN CORPUSCULAR HEMOGLOBIN 27.4 pg (27.0-33.4); MEAN CORPUSCULAR HGB CONC 32.8 g/dL (32.0-36.0); MEAN CORPUSCULAR VOLUME 83 fl (80-97); MONOCYTES % (AUTO) 14.1 % (3-13); PLATELET COUNT 313 10^3/uL (150-450); RED BLOOD COUNT 3.47 10^6/uL (3.72-5.28); RED CELL DISTRIBUTION WIDTH 17.4 % (11.5-14.0); SEGMENTED NEUTROPHILS % (AUTO) 53.9 % (42-78); TOTAL CELLS COUNTED % (AUTO) 100 %; WHITE BLOOD COUNT 6.8 10^3/uL (4.0-10.5)
[2018-08-23 05:51] LABS: ALANINE AMINOTRANSFERASE 25 U/L (9-52); ALBUMIN 3.6 g/dL (3.5-5.0); ALKALINE PHOSPHATASE 75 U/L (38-126); ANION GAP 12 (5-19); ASPARTATE AMINO TRANSFERASE 22 U/L (14-36); BILIRUBIN,DIRECT 0.1 mg/dL (0.0-0.4); BILIRUBIN,TOTAL 0.3 mg/dL (0.2-1.3); BLOOD UREA NITROGEN 39 mg/dL (7-20); CALCIUM 9.3 mg/dL (8.4-10.2); CARBON DIOXIDE 23 mmol/L (22-30); CHLORIDE 103 mmol/L (98-107); GLUCOSE 120 mg/dL (75-110); POTASSIUM 4.6 mmol/L (3.6-5.0); SODIUM 138.4 mmol/L (137-145); TOTAL PROTEIN 6.6 g/dL (6.3-8.2)
[2018-08-23] MEDS: BUDESONIDE NEB 0.5 MG/2 ML AMPUL NEB SCH (08:21)
[2018-08-23] MEDS: SPIRONOLACTONE 25 MG TABLET PO SCH (09:56)
[2018-08-23] MEDS: FUROSEMIDE INJ/PF 40 MG/4 ML SDV IV SCH (09:56)
[2018-08-23] MEDS: NIFEDIPINE 30 MG TAB.ER.24 PO SCH (09:58)
[2018-08-23] MEDS: DOCUSATE SODIUM 100 MG CAPSULE PO SCH (09:58)
[2018-08-23] MEDS: LISINOPRIL 10 MG TABLET PO SCH (09:59)
[2018-08-23] MEDS: FAMOTIDINE 20 MG TABLET PO SCH (09:59)
[2018-08-23] MEDS: DULOXETINE HCL 30 MG CAPSULE.DR PO SCH (09:59)
[2018-08-23] MEDS: METOPROLOL SUCCINATE 25 MG TAB.SR.24H PO SCH (09:59)
--- NOTE | 2018-08-23 12:31 | PDOC DISCHARGE SUMMARY ---
General - Admit/Disc Date/PCP Admission Date/Primary Care Provider: 08/20/18 20:16 Discharge Date: 08/23/18 - Discharge Diagnosis (1) Acute respiratory failure with hypoxia Is this a current diagnosis for this admission?: Yes Summary: Patient was placed on BiPAP in the emergency room and this will be continued until her congestive heart failure has improved point where she can have reduced or no oxygen support. Her O2 sat will be maintained in the 92-94% range per hospital O2 protocol. 08/21/2018-patient came in with acute on chronic respiratory failure with hypoxia most likely secondary to underlying COPD exacerbation/CHF exacerbation. Initially in the ER she required BiPAP. Presently pulse ox is 95% on 2 L. She is on Xopenex nebulizations and also on Pulmicort. Plan is to continue the present management. Chest x-ray done on admission suggestive of either bilater al pneumonia/congestive heart failure. And is to repeat the chest x-ray tomorrow. 08/22/2018-patient is to be admitted with acute on chronic respiratory failure with hypoxia most likely secondary to underlying COPD exacerbation/CHF exacerbation. Initially required BiPAP. Right now pulse ox is 99% on 3 L. Patient is on a Xopenex nebulizations and also Pulmicort. CT scan of the chest is suggestive of bilateral pulmonary congestion indicating congestive heart failure. Patient is afebrile and no WBC count. 08/23/2018-patient is admitted with acute on chronic respiratory failure with hypoxia most likely due to underlying COPD exacerbation, CHF exacerbation. Initially she required BiPAP. Today pulse ox is 97% on room air. Not in distress. Patient is expressing desire to go home. Patient is advised to follow-up with primary care physician in 1 week time. (2) Congestive heart failure Is this a current diagnosis for this admission?: Yes Summary: 08/21/18 13:09 Patient denies any history of congestive heart failure. But she admitted that she has chronic bilateral lower leg swelling. Recently she developed shortness of breath also. This 1 of the reasons she came to the emergency room. Is presently on spironolactone and Toprol. BNP is 2590 she was started on Lasix 40 mg IV daily, lisinopril 10 mg IV daily today. Most likely patient has chronic systolic heart failure because of the history of hypertension. Waiting for the echocardiogram report. plan is to repeat the BNP tomorrow. 08/22/2018-patient BNP came down to 1550 today she is presently on Lasix 40 mg IV daily echocardiogram was done yesterday left ventricular ejection fraction of 65%. Left ventricular diastolic function is on also normal as per the echo. She has a history of chronic hypertension may be it is a contributing factor for chronic systolic hypertension in my opinion. And is to continue the present management. 08/23/2018-patient came in with elevated BNP and pedal edema CT scan shows enlarged heart with bilateral pleural effusions. But the echocardiogram indicates normal left ventricular systolic function. Ejection fraction is 65%. In my opinion patient has chronic systolic heart failure secondary to hyperten kodi. BNP came down to 797. TSH is 0.89. Patient is going to go home on Lasix 40 mg p.o. daily, spironolactone 12.5 mg p.o. daily. (3) COPD (chronic obstructive pulmonary disease) Is this a current diagnosis for this admission?: No Summary: Patient replaced on a routine nebulizer therapy regiment utilizing Xopenex and Atrovent every 8 hours and budesonide every 12 hours. She can be returned to her home medications once this list is available. Patient initially came in with respiratory distress requiring BiPAP in the [facility] room. Pulse ox are improved to 95% on 2 L this morning. Patient is presently on Xopenex nebulizations and her Pulmicort. Plan is to continue the present management. 08/23/2018-patient has history of COPD came in with COPD exacerbation requiring BiPAP in the emergency room. Pulse ox are improved to 97% today. On examination chest bilateral entry with decreased no wheezing no crepitations. (4) Diabetes mellitus type 2 in obese Is this a current diagnosis for this admission?: No Summary: 08/21/18 13:11 08/21/2018 patient has history of type 2 diabetes mellitus hemoglobin A1c 6.3. Latest blood sugar is 141. Patient is presently on insulin sliding scale plan is to continue the present management. Patient is on glipizide/metformin at home which was on hold. 08/22/2018-patient has history of type 2 diabetes mellitus, hemoglobin A1c 6.3 on admission latest blood sugar is 34. Plan is to continue insulin sliding scale before meals and at bedtime. 08/23/2018-patient has history of type 2 diabetes mellitus, hemoglobin A1c 6.3 latest blood sugar is 131 well-controlled patient is on insulin sliding scale before meals and at bedtime here in the hospital patient was advised to resume glipizide/metformin at home. (5) Hypertension Is this a current diagnosis for this admission?: No Summary: 08/21/18 13:12 Patient's latest blood pressure is 154/54. She has history of chronic hypertension. At home she is on metoprolol 50 mg daily and nifedipine 90 mg daily. Plan is to hold nifedipine because of the chronic pedal edema. Start on Lasix 40 mg IV daily lisinopril 10 mg daily. Plan to check the blood pressures every shift. 08/22/2018-patient's latest blood pressure is 125/46 with a heart rate of 94 she had a short and a brief episode of atrial fibrillation. Order for Cardizem IV 5 mg every 6 hours as needed for heart rate of more than 120 was placed. Plan is to continue the present management. 08/23/2018-patient has history of hypertension latest blood pressure is 121/56 stable. Patient advised to continue the present medications and give a prescription for Lasix 40 mg p.o. daily. (6) Paroxysmal A-fib Is this a current diagnosis for this admission?: Yes Summary: 08/22/2018-patient found to have a shot episode of paroxysmal atrial fibrillation patient is asymptomatic she immediately converted to sinus rhythm. It may be secondary to underlying COPD/CHF exacerbation. 08/23/2018-patient has very brief episode of atrial fibrillation spontaneously converted into sinus rhythm yesterday. The episode may be secondary to COPD/CHF exacerbation. - Additional Information Resuscitation Status: Full Code Discharge Diet: Cardiac, Diabetic Discharge Activity: Activity As Tolerated, Balance Activity w/Rest, Weigh Daily Prescriptions: Furosemide [Lasix 40 mg Tablet] 40 mg PO QAM #30 tablet Lisinopril [Prinivil 10 mg Tablet] 10 mg PO DAILY #30 tablet Spironolactone [Aldactone 25 mg Tablet] 12.5 mg PO DAILY #30 tablet Home Medications: Acetaminophen [Tylenol Arthritis] 650 mg PO Q6HP PRN 08/21/18 Atorvastatin Calcium [Lipitor 40 mg Tablet] 40 mg PO QHS 08/21/18 Duloxetine HCl [Cymbalta] 30 mg PO DAILY 08/21/18 Gabapentin [Neurontin 300 mg Capsule] 1,200 mg PO Q8 08/21/18 Glipizide/Metformin HCl [Glipizide-Metformin 2.5-500 mg] 2 each PO BID 08/21/18 Metoprolol Succinate [Toprol Xl 50 mg Tab.sr] 50 mg PO DAILY 08/21/18 Nifedipine [Nifedipine ER] 90 mg PO DAILY 08/21/18 Tramadol HCl [Ultram 50 mg Tablet] 50 mg PO DAILYP PRN 08/21/18 Furosemide [Lasix 40 mg Tablet] 40 mg PO QAM #30 tablet 08/23/18 Lisinopril [Prinivil 10 mg Tablet] 10 mg PO DAILY #30 tablet 08/23/18 Spironolactone [Aldactone 25 mg Tablet] 12.5 mg PO DAILY #30 tablet 08/23/18 History of Present Illness History of Present Illness: RICHARD QUINONEZ is a 88 year old female 88 year old female who presented to the emergency room via EMS with a 2-day history of progressively worsening dyspnea. She admits that her dyspnea has been present in gradually worsened over the last 2 days without obvious causation. She admits mild orthopnea accompanying her dyspnea. Her dyspnea got to the point today where it was severe and required her to summon EMS to bring her to the emergency room. She did try using a nebulizer treatment prior to coming to the emergency room without improvement. She admits similar prior episodes associated with her COPD, but those are usually accompanied by wheezin g. She has noted that exertion significantly increases her dyspnea and it is mildly relieved by rest. In the emergency room she was found to have significant hypoxia despite respiratory support with oxygen and had significant work of breathing requiring her to be placed on BiPAP for adequate oxygenation and comfort. With these findings patient was admitted to the hospital for further evaluation and treatment. Physical Exam Vital Signs: Temp Pulse Resp BP Pulse Ox 98.2 F 88 18 121/56 L 96 08/23/18 07:34 08/23/18 08:21 08/23/18 08:21 08/23/18 07:34 08/23/18 08:21 Intake & Output 08/22/18 08/23/18 08/24/18 06:59 06:59 06:59 Intake Total 1038 1018 Output Total 3210 840 Balance -2172 178 Weight 85.7 kg 84.3 kg General appearance: PRESENT: no acute distress Head exam: PRESENT: atraumatic Eye exam: PRESENT: PERRLA Neck exam: ABSENT: carotid bruit, JVD, lymphadenopathy, thyromegaly Respiratory exam: PRESENT: clear to auscultation adrian. ABSENT: rales, rhonchi, wheezes Cardiovascular exam: PRESENT: RRR. ABSENT: diastolic murmur, rubs, systolic murmur GI/Abdominal exam: PRESENT: normal bowel sounds, soft. ABSENT: distended, guarding, mass, organolmegaly, rebound, tenderness Extremities exam: PRESENT: full ROM. ABSENT: calf tenderness, clubbing, pedal edema Neurological exam: PRESENT: alert, awake, oriented to person, oriented to place, oriented to time, oriented to situation, CN II-XII grossly intact. ABSENT: motor sensory deficit Psychiatric exam: PRESENT: appropriate affect, normal mood. ABSENT: homicidal ideation, suicidal ideation Results Laboratory Results: 08/23/18 04:51 08/23/18 04:51 08/23/18 08/23/18 04:51 04:51 WBC 6.8 RBC 3.47 L Hgb 9.5 L Hct 29.0 L MCV 83 MCH 27.4 MCHC 32.8 RDW 17.4 H Plt Count 313 Seg Neutrophils % 53.9 Lymphocytes % 27.4 Monocytes % 14.1 H Eosinophils % 3.8 Basophils % 0.8 Absolute Neutrophils 3.7 Absolute Lymphocytes 1.9 Absolute Monocytes 1.0 Absolute Eosinophils 0.3 Absolute Basophils 0.1 Sodium 138.4 Potassium 4.6 Chloride 103 Carbon Dioxide 23 Anion Gap 12 BUN 39 H Creatinine 1.34 H Est GFR ( Amer) 45 L Est GFR (Non-Af Amer) 38 L Glucose 120 H Calcium 9.3 Magnesium 2.1 Total Bilirubin 0.3 AST 22 ALT 25 Alkaline Phosphatase 75 Total Protein 6.6 Albumin 3.6 08/20/18 21:55 Catheterized Urine Urine Culture - Final NO GROWTH 2 DAYS 08/20/18 08/20/18 08/20/18 16:50 16:50 22:53 Creatine Kinase 158 H CK-MB (CK-2) Troponin I 0.024 NT-Pro-B Natriuret Pep 1400 H 08/20/18 08/21/18 08/21/18 22:53 05:09 05:09 Creatine Kinase 148 H CK-MB (CK-2) 1.64 1.99 Troponin I 0.021 0.028 NT-Pro-B Natriuret Pep 08/21/18 08/21/18 08/21/18 05:09 10:55 10:55 Creatine Kinase 257 H CK-MB (CK-2) 3.67 Troponin I 0.020 NT-Pro-B Natriuret Pep 2390 H 08/22/18 08/23/18 05:38 04:51 Creatine Kinase CK-MB (CK-2) Troponin I NT-Pro-B Natriuret Pep 1550 H 797 H Impressions: Chest X-Ray 08/20/18 17:25 IMPRESSION: Patchy bibasilar airspace opacities may represent an infectious process such as pneumonia. In the setting of cardiomegaly, early congestive heart failure could have a similar appearance. Clinical correlation recommended. Chest CT 08/21/18 00:00 IMPRESSION: Findings suggestive of CHF with enlarged heart, small bilateral effusions and mild interlobular septal thickening. No overt alveolar edema. Mild bilateral lower lobe consolidation, likely atelectasis. Mildly enlarged nonspecific mediastinal and hilar lymph nodes as above. Qualifiers - * PATIENT BEING DISCHARGED WITH ANY OF THE FOLLOWING DIAGNOSIS: No VTE patient discharged on overlapping Therapy?: No
[2018-08-23 14:16] VITALS: BP 148/70
== END 2018-08-23 17:54 | disposition home or self-care (01) | DRG 291 ==
LOC: ER 17:20 → EH 20:16 → 3W 08-21 01:14
PROVIDERS: ADMIT Emergency Medicine; ATTEND Emergency Medicine
DX: I11.0 Hypertensive heart disease with heart failure (principal); J96.21 Acute and chronic respiratory failure with hypoxia; I50.22 Chronic systolic (congestive) heart failure; I48.0 Paroxysmal atrial fibrillation; J44.9 Chronic obstructive pulmonary disease, unspecified; E11.8 Type 2 diabetes mellitus with unspecified complications; E78.5 Hyperlipidemia, unspecified; D64.9 Anemia, unspecified; Z87.891 Personal history of nicotine dependence
CPT/HCPCS: 36415; 51702; 71045; 71250; 80048; 80053; 80061; 81001; 82550; 82553; 82803; 82962; 83036; 83735; 83880; 84439; 84443; 84481; 84484; 85025; 85027; 85610; 87086; 93005; 93010; 93306; 94640; 94660; 99285; J0360; J1644; J1815; J1940; J2270; J3490